=== PATIENT | male | born 1950 ===

== ENCOUNTER 2019-03-07 20:30 | Outpatient (CLI) | payer BC | END 2019-03-07 20:31 | disposition home or self-care (01) | LOC: SLEEPLAB 20:30 | PROVIDERS: ATTEND Family Medicine | DX: G47.33 Obstructive sleep apnea (adult) (pediatric) (principal); R53.83 Other fatigue; R06.83 Snoring; G47.00 Insomnia, unspecified; G47.10 Hypersomnia, unspecified; G47.12 Idiopathic hypersomnia without long sleep time | CPT/HCPCS: 95810 ==